=== PATIENT | male | born 1955 | race Caucasian/White ===

== ENCOUNTER → 2017-08-14 | Outpatient (CLI) | payer BC | END | disposition home or self-care (01) | LOC: GMAJ 10:58 | PROVIDERS: ATTEND Family Medicine | DX: Z00.00 Encounter for general adult medical examination without abnormal findings (principal) ==

== ENCOUNTER → 2018-11-29 | Outpatient (CLI) | payer MEDICARE | LOC: GMAJ 11:10 | PROVIDERS: ATTEND Family Medicine | DX: Z12.5 Encounter for screening for malignant neoplasm of prostate (principal) ==

== ENCOUNTER → 2019-12-13 | Outpatient (CLI) | payer MEDICARE, OTHER ==
--- NOTE | 2019-12-13 17:33 | MRI ---
EXAM DESCRIPTION: Knee,Left CLINICAL HISTORY: 64 years Male, medial meniscus, left knee COMPARISON: None. TECHNIQUE: Noncontrast multiplanar multisequence magnetic resonance imaging of the left knee. FINDINGS: A flap tear is present within the posterior horn body segment junction of the medial meniscus extending horizontally into the posterior horn. The lateral meniscus exhibits normal thickness and morphology. Anterior and posterior cruciate ligaments are maintained. Mild thickening and interstitial edema of the medial collateral ligament without high-grade entrapped tear. The extensor mechanism is intact. Small knee joint effusion is present. No synovitis. No popliteal cyst formation. Extensive susceptibility artifact from the lateral tibial condyle hardware better seen on comparison x-ray December 06, 2019. Large area of full-thickness cartilage loss with subchondral sclerosis and edema noted throughout the more superior portion of the medial patellar facet extending over the apex consistent with grade 4 chondrosis. No significant patellar tracking disorder. Central weightbearing opposing areas of full-thickness cartilage fibrillation with subchondral bone marrow edema noted within the medial compartment articular surface measuring up to 1.2 cm consistent with grade 4 chondrosis. Small focus grade 4 chondrosis posterior nonweightbearing surface medial femoral condyle. The lateral compartment articular surface remains smooth. IMPRESSION: Flap tear posterior horn body segment junction medial meniscus with horizontal extension into the posterior horn. Low-grade MCL sprain. 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 Small knee joint effusion. No synovitis. Intact cruciate ligaments. Electronically signed by: Shmuel Moya MD 12/13/2019 5:31 PM [facility]
== END ==
LOC: MRI 11:00
PROVIDERS: ATTEND Family Medicine
DX: M23.304 Other meniscus derangements, unspecified medial meniscus, left knee (principal); M22.42 Chondromalacia patellae, left knee; M25.462 Effusion, left knee

== ENCOUNTER → 2019-12-16 | Outpatient (CLI) | payer MEDICARE, OTHER | LOC: GMAJ 10:49 | PROVIDERS: ATTEND Family Medicine | DX: Z12.5 Encounter for screening for malignant neoplasm of prostate (principal); I10 Essential (primary) hypertension ==

== ENCOUNTER → 2019-12-23 | Outpatient (CLI) | payer MEDICARE, OTHER ==
--- NOTE | 2019-12-23 15:38 | RAD ---
EXAM DESCRIPTION: Knee,Left 1 or 2 Views CLINICAL HISTORY: 64 years, Male, PAIN IN LEFT KNEE COMPARISON: None TECHNIQUE: Two views left knee FINDINGS: A standing flexed view of the left knee demonstrates sclerosis and joint space narrowing medial compartment and a large staple in the lateral tibial plateau. Axial view of the patella demonstrates the patellofemoral articulation is essentially normal in appearance. No fracture or subluxation noted. IMPRESSION: 1. Degenerative left knee, most prominently in the medial joint compartment with staple in the lateral tibial plateau. Electronically signed by: Marek Santos MD 12/23/2019 3:36 PM [facility]
--- NOTE | 2019-12-23 15:39 | RAD ---
EXAM DESCRIPTION: Pelvis CLINICAL HISTORY: 64 years Male, PAIN IN LEFT HIP COMPARISON: None. FINDINGS: AP view of the pelvis demonstrates SI joints and sacral neural foramina and sacral ala intact. The bony pelvic ring is intact. Mild degenerative changes both hips with minimal marginal osteophyte formation noted. IMPRESSION: Negative pelvis one view. Electronically signed by: Marek Santos MD 12/23/2019 3:37 PM [facility]
== END ==
LOC: RAD 09:57
PROVIDERS: ATTEND Orthopaedic Surgery
DX: M17.12 Unilateral primary osteoarthritis, left knee (principal); M25.552 Pain in left hip